=== PATIENT | male | born 1965 | race Caucasian/White ===

== ENCOUNTER 2019-02-21 19:55 | Inpatient (IN) | payer OTHER ==
[~2019-02-21] VITALS: Ht 170.2 cm; Wt 75.8 kg
[2019-02-22] MEDS ORDERED: 0.9% SODIUM CHLORIDE 10 ML SYRINGE IVP PRN ×2 (00:30→04:15)
[2019-02-22] MEDS ORDERED: SODIUM CHLORIDE 0.9% 1,000 ML IV ONE ×3 (00:30→12:00)
[2019-02-22 00:46] LABS: BASOPHILS % (AUTO) 0.5 % (0.0-2.0); EOSINOPHILS % (AUTO) 0.2 % (1.0-6.0); HEMATOCRIT 41.8 % (41-53); HEMOGLOBIN 13.6 g/dL (13.5-17.5); LYMPHOCYTES # (AUTO) 1.1 K/uL (1.0-4.8); LYMPHOCYTES % (AUTO) 15.1 % (22.0-44.0); MEAN CORPUSCULAR HEMOGLOBIN 29.9 pg (26.0-34.0); MEAN CORPUSCULAR HGB CONC 32.6 G/dL (31.0-37.0); MEAN CORPUSCULAR VOLUME 92 fL (80-100); MONOCYTES # (AUTO) 0.8 K/uL (0.1-1.0); MONOCYTES % (AUTO) 11.3 % (2.0-9.0); NEUTROPHILS # (AUTO) 5.1 K/uL (1.8-7.7); NEUTROPHILS % (AUTO) 72.9 % (40.0-70.0); PLATELET COUNT (AUTO) 246 K/uL (150-450); RED BLOOD CELL COUNT(AUTO) 4.55 MIL/uL (4.50-5.90); RED CELL DISTRIBUTION WIDTH 13.7 % (11.5-14.5)
[2019-02-22 00:54] LABS: ANION GAP 11 mmol/L (8-16); CALCIUM, TOTAL 8.8 mg/dL (8.8-10.5); CARBON DIOXIDE 25 mmol/L (22-29); CHLORIDE 104 mmol/L (98-107); CREATININE 0.82 mg/dL (0.60-1.30); GLOMERULAR FILTR. RATE CALC > 60 mL/min (>60); GLUCOSE,RANDOM 97 mg/dL (70-110); POTASSIUM 3.2 mmol/L (3.5-5.1); SODIUM SERUM 140 mmol/L (136-145); UREA NITROGEN, BLOOD 13 mg/dL (7-18)
[2019-02-22 01:02] LABS: LACTIC ACID 0.6 mmol/L (0.4-2.0)
[2019-02-22 01:03] LABS: GLUCOSE,POINT OF CARE 87 MG/DL (70-110)
[2019-02-22 01:19] LABS: ALANINE AMINOTRANSFERASE 18 U/L (12-78); ALBUMIN 3.5 g/dL (3.4-5.0); ALKALINE PHOSPHATASE 104 U/L (46-116); ASPARTATE AMINOTRANSFERASE 30 U/L (15-37); BILIRUBIN,TOTAL 1.2 mg/dL (0.1-1.0); CREATINE KINASE, TOTAL ONLY 584 U/L (39-308); TOTAL PROTEIN, SERUM 7.2 g/dL (6.4-8.2)
[2019-02-22] MEDS ORDERED: NALOXONE HCL 1 MG/ML 2 ML SYG IVP ONE (02:15)
[2019-02-22 02:19] LABS: AMPHET/METH SCREEN,URINE POSITIVE (NEGATIVE); BARBITURATE SCREEN, URINE NEGATIVE (NEGATIVE); BENZODIAZEPINES SCREEN,URINE NEGATIVE (NEGATIVE); CANNABINOID SCREEN,URINE POSITIVE (NEGATIVE); COCAINE SCREEN,URINE NEGATIVE (NEGATIVE); METHADONE SCREEN, URINE NEGATIVE (NEGATIVE); OPIATE SCREEN,URINE NEGATIVE (NEGATIVE)
[2019-02-22 02:22] LABS: PHENCYCLIDINE SCREEN,URINE NEGATIVE (NEGATIVE)
[2019-02-22] MEDS ORDERED: HydrALAZINE HCL 20 MG/ML VIAL IVP ONE (02:45)
[2019-02-22 02:50] LABS: SALICYLATE 0.6 mg/dL (2.8-20.0)
[2019-02-22 02:58] LABS: ACETAMINOPHEN < 2 mcg/mL (10-30)
[2019-02-22] MEDS ORDERED: ACETAMINOPHEN 325 MG TABLET PO PRN ×2 (04:15→12:00)
[2019-02-22] MEDS ORDERED: ONDANSETRON HCL 4 MG/2 ML VIAL IVP PRN (04:15)
[2019-02-22] MEDS ORDERED: POTASSIUM CHL 20 MEQ/0.9% NS 1,000 ML IV ONE (05:30)
[2019-02-22 06:55] VITALS: BP 141/79
[2019-02-22 11:06] VITALS: BP 147/98
[2019-02-22] MEDS ORDERED: MAGNESIUM HYDROXIDE SUSPENSION 30 ML UDCUP PO PRN (12:00)
[2019-02-22 15:11] VITALS: BP 145/71
[2019-02-22] MEDS ORDERED: OLANZapine 5 MG RAPDIS TABLET PO PRN (18:15)
[2019-02-22 19:18] VITALS: BP 150/95
[2019-02-22] MEDS: OLANZapine 5 MG RAPDIS TABLET PO SCH (21:39)
[2019-02-22 23:28] VITALS: BP 141/86
[2019-02-23] MEDS ORDERED: VANCOMYCIN HCL 1.5 GM in DEXTROSE 5%-WATER 250 ML IV ONE (00:30)
[2019-02-23] MEDS: CefTRIAXone 1 GM/DEXTROSE 50 ML IV SCH (00:32)
[2019-02-23 02:01] LABS: APPEARANCE,URINE CLEAR (CLEAR); BILIRUBIN,URINE NEGATIVE (NEGATIVE); GLUCOSE, URINE (UA) NEGATIVE (NEGATIVE); KETONES,URINE NEGATIVE (NEGATIVE); LEUKOCYTE ESTERASE ,URINE NEGATIVE (NEGATIVE); NITRATE,URINE NEGATIVE (NEGATIVE); OCCULT BLOOD,URINE NEGATIVE (NEGATIVE); PROTEIN,URINE NEGATIVE (NEGATIVE); UROBILINOGEN,URINE 0.2 mg/dL (<=1.0)
[2019-02-23 04:30] VITALS: BP 141/91
[2019-02-23 07:20] LABS: BASOPHILS % (AUTO) 0.4 % (0.0-2.0); EOSINOPHILS % (AUTO) 1.7 % (1.0-6.0); HEMATOCRIT 43.1 % (41-53); LYMPHOCYTES # (AUTO) 1.7 K/uL (1.0-4.8); LYMPHOCYTES % (AUTO) 30.7 % (22.0-44.0); MEAN CORPUSCULAR HEMOGLOBIN 30.4 pg (26.0-34.0); MEAN CORPUSCULAR HGB CONC 32.5 G/dL (31.0-37.0); MEAN CORPUSCULAR VOLUME 94 fL (80-100); MONOCYTES # (AUTO) 0.6 K/uL (0.1-1.0); MONOCYTES % (AUTO) 10.7 % (2.0-9.0); NEUTROPHILS # (AUTO) 3.2 K/uL (1.8-7.7); NEUTROPHILS % (AUTO) 56.5 % (40.0-70.0); PLATELET COUNT (AUTO) 255 K/uL (150-450); RED BLOOD CELL COUNT(AUTO) 4.61 MIL/uL (4.50-5.90); RED CELL DISTRIBUTION WIDTH 13.6 % (11.5-14.5)
[2019-02-23 08:04] LABS: ALANINE AMINOTRANSFERASE 12 U/L (12-78); ALBUMIN 2.7 g/dL (3.4-5.0); ALKALINE PHOSPHATASE 82 U/L (46-116); ANION GAP 7 mmol/L (8-16); ASPARTATE AMINOTRANSFERASE 27 U/L (15-37); BILIRUBIN,TOTAL 0.7 mg/dL (0.1-1.0); CALCIUM, TOTAL 8.6 mg/dL (8.8-10.5); CARBON DIOXIDE 26 mmol/L (22-29); CHLORIDE 104 mmol/L (98-107); CREATININE 0.66 mg/dL (0.60-1.30); GLOMERULAR FILTR. RATE CALC > 60 mL/min (>60); GLUCOSE,RANDOM 94 mg/dL (70-110); POTASSIUM 3.4 mmol/L (3.5-5.1); SODIUM SERUM 137 mmol/L (136-145); UREA NITROGEN, BLOOD 9 mg/dL (7-18)
[2019-02-23 08:18] VITALS: BP 149/96
[2019-02-23] MEDS ORDERED: SODIUM CHLORIDE 0.9% 250 ML IV ONE (08:43)
[2019-02-23] MEDS: VANCOMYCIN HCL 1 GM/D5% WATER 200 ML IV SCH ×3 (08:45→23:21)
[2019-02-23 13:36] VITALS: BP 133/77
[2019-02-23] MEDS ORDERED: POTASSIUM CHLORIDE 20 MEQ ER TABLET PO PRN (14:30)
[2019-02-23] MEDS ORDERED: POTASSIUM CHL 10 MEQ/WATER 50 ML IV PRN (14:30)
[2019-02-23 16:42] VITALS: BP 133/79
[2019-02-23 21:17] VITALS: BP 142/94
[2019-02-23] MEDS: OLANZapine 5 MG RAPDIS TABLET PO SCH (23:21)
[2019-02-24 00:01] VITALS: BP 143/75
[2019-02-24] MEDS: CefTRIAXone 1 GM/DEXTROSE 50 ML IV SCH (01:07)
[2019-02-24 04:36] VITALS: BP 146/86
[2019-02-24 07:04] LABS: ANION GAP 9 mmol/L (8-16); CALCIUM, TOTAL 8.6 mg/dL (8.8-10.5); CARBON DIOXIDE 26 mmol/L (22-29); CHLORIDE 104 mmol/L (98-107); GLOMERULAR FILTR. RATE CALC > 60 mL/min (>60); GLUCOSE,RANDOM 106 mg/dL (70-110); POTASSIUM 3.8 mmol/L (3.5-5.1); SODIUM SERUM 139 mmol/L (136-145); UREA NITROGEN, BLOOD 10 mg/dL (7-18); VANCOMYCIN,RANDOM 14.1 mcg/mL (25.0-50.0)
[2019-02-24 08:01] VITALS: BP 165/90
[2019-02-24] MEDS: VANCOMYCIN HCL 1 GM/D5% WATER 200 ML IV SCH ×2 (09:16→16:00)
[2019-02-24 12:03] VITALS: BP 153/93
[2019-02-24 14:00] VITALS: BP 157/83
[2019-02-24 16:08] VITALS: BP 157/83
== END 2019-02-24 20:05 | DRG 92 ==
LOC: EMS 19:57 → 5S 02-22 04:00
PROVIDERS: ADMIT Internal Medicine; ATTEND Internal Medicine
DX: G92 Toxic encephalopathy (principal); M62.82 Rhabdomyolysis; R45.851 Suicidal ideations; Z91.19 Patient's noncompliance with other medical treatment and regimen; E86.0 Dehydration; F20.9 Schizophrenia, unspecified; F15.90 Other stimulant use, unspecified, uncomplicated; F19.10 Other psychoactive substance abuse, uncomplicated; E87.6 Hypokalemia; Z79.899 Other long term (current) drug therapy
CPT/HCPCS: 70450; 83605; 84132; 87040; 87205; 93005; 93306; G0378; G0480; G0481; J0360; J0696; J2310; J3370; J3480; J7030; J7050; J7060

== ENCOUNTER 2019-02-24 18:26 | Inpatient (IN) | payer OTHER ==
[~2019-02-24] VITALS: Ht 165.1 cm; Wt 77.3 kg
[2019-02-24] MEDS ORDERED: OLANZapine 5 MG RAPDIS TABLET PO PRN (19:15)
[2019-02-24] MEDS ORDERED: ZOLPIDEM TARTRATE 10 MG TABLET PO PRN (19:15)
[2019-02-24 20:47] VITALS: BP 155/91
[2019-02-24] MEDS: OLANZapine 5 MG RAPDIS TABLET PO SCH (22:17)
[2019-02-25 08:00] VITALS: BP 142/73
[2019-02-25] MEDS: NICOTINE 14 MG/24 HOUR PATCH TD SCH (08:28)
[2019-02-25] MEDS: NYSTATIN 15 GM POWDER BOTTLE TP SCH ×2 (08:29→17:41)
[2019-02-25] MEDS ORDERED: LOPERAMIDE HCL 2 MG CAPSULE PO PRN (15:15)
[2019-02-25] MEDS ORDERED: MAG HYDROX/AL HYDROX/SIMETH ES 30 ML SUSPENSION UDCUP PO PRN (15:15)
[2019-02-25] MEDS ORDERED: MAGNESIUM HYDROXIDE SUSPENSION 30 ML UDCUP PO PRN (15:15)
[2019-02-25] MEDS ORDERED: HydrOXYzine PAMOATE 50 MG CAPSULE PO PRN (15:15)
[2019-02-25] MEDS ORDERED: GuaiFENesin/D-METHORPHAN [SUGAR-FREE] 200-20MG/10 ML SYRUP UDCUP PO PRN (15:15)
[2019-02-25] MEDS ORDERED: PROMETHAZINE HCL 25 MG TABLET PO PRN (15:15)
[2019-02-25 16:03] VITALS: BP 132/87
[2019-02-25] MEDS: ACETAMINOPHEN 325 MG TABLET PO PRN (16:05)
[2019-02-25] MEDS: LORazepam 2 MG TABLET PO PRN (16:05)
[2019-02-25] MEDS: THIAMINE HCL 100 MG TABLET PO SCH (16:26)
[2019-02-25] MEDS: OLANZapine 5 MG RAPDIS TABLET PO SCH (20:22)
[2019-02-26] MEDS: THIAMINE HCL 100 MG TABLET PO SCH ×2 (10:29→16:04)
[2019-02-26] MEDS: FOLIC ACID 1 MG TABLET PO SCH (10:29)
[2019-02-26] MEDS: MULTIVITAMINS WITH MINERALS, THERAPEUTIC TABLET PO SCH (10:29)
[2019-02-26] MEDS: NICOTINE 14 MG/24 HOUR PATCH TD SCH (10:29)
[2019-02-26] MEDS: NYSTATIN 15 GM POWDER BOTTLE TP SCH ×2 (10:30→20:47)
[2019-02-26] MEDS ORDERED: TraMADol HCL 50 MG TABLET PO PRN (14:15)
[2019-02-26] MEDS: LORazepam 2 MG TABLET PO PRN (16:04)
[2019-02-26] MEDS: DOXYCYCLINE HYCLATE 100 MG CAPSULE PO SCH (16:04)
[2019-02-26] MEDS: GABAPENTIN 300 MG CAPSULE PO SCH (16:05)
[2019-02-26] MEDS: OLANZapine 5 MG RAPDIS TABLET PO SCH (20:47)
[2019-02-27] MEDS: GABAPENTIN 300 MG CAPSULE PO SCH ×4 (00:46→23:56)
[2019-02-27 08:00] VITALS: BP 132/87
[2019-02-27] MEDS: FOLIC ACID 1 MG TABLET PO SCH (08:40)
[2019-02-27] MEDS: DOXYCYCLINE HYCLATE 100 MG CAPSULE PO SCH ×2 (08:40→16:57)
[2019-02-27] MEDS: THIAMINE HCL 100 MG TABLET PO SCH ×2 (08:40→17:04)
[2019-02-27] MEDS: MULTIVITAMINS WITH MINERALS, THERAPEUTIC TABLET PO SCH (08:40)
[2019-02-27] MEDS: NICOTINE 14 MG/24 HOUR PATCH TD SCH (08:41)
[2019-02-27] MEDS: NYSTATIN 15 GM POWDER BOTTLE TP SCH ×2 (08:42→17:04)
[2019-02-27] MEDS: LORazepam 2 MG TABLET PO PRN ×2 (09:36→16:58)
[2019-02-27 16:00] VITALS: BP 136/84
[2019-02-27] MEDS: OLANZapine 5 MG RAPDIS TABLET PO SCH (20:42)
[2019-02-28] MEDS: GABAPENTIN 300 MG CAPSULE PO SCH ×2 (08:57→16:03)
[2019-02-28] MEDS: MULTIVITAMINS WITH MINERALS, THERAPEUTIC TABLET PO SCH (08:57)
[2019-02-28] MEDS: FOLIC ACID 1 MG TABLET PO SCH (08:57)
[2019-02-28] MEDS: THIAMINE HCL 100 MG TABLET PO SCH ×2 (08:58→16:03)
[2019-02-28] MEDS: DOXYCYCLINE HYCLATE 100 MG CAPSULE PO SCH ×2 (08:58→16:03)
[2019-02-28] MEDS: NICOTINE 14 MG/24 HOUR PATCH TD SCH (09:07)
[2019-02-28] MEDS: NYSTATIN 15 GM POWDER BOTTLE TP SCH ×2 (09:19→16:04)
[2019-02-28 12:09] VITALS: BP 112/99
[2019-02-28] MEDS ORDERED: GABA-531 PO (14:41)
[2019-02-28] MEDS ORDERED: OLAN5TAB30 PO (14:41)
[2019-02-28] MEDS ORDERED: NALT50TA PO (14:42)
[2019-02-28] MEDS ORDERED: DOXY100C PO (15:54)
[2019-02-28 16:03] VITALS: BP 164/100
[2019-02-28] MEDS: ACETAMINOPHEN 325 MG TABLET PO PRN (16:03)
== END 2019-02-28 16:15 | disposition home or self-care (01) | DRG 885 ==
LOC: 3EX 20:30
PROVIDERS: ADMIT Psychiatry & Neurology Psychiatry; ATTEND Psychiatry & Neurology Psychiatry
DX: F25.1 Schizoaffective disorder, depressive type (principal); F17.200 Nicotine dependence, unspecified, uncomplicated
CPT/HCPCS: 87081; G0378